=== PATIENT | female | born 1960 | race Caucasian/White ===

== ENCOUNTER → 2016-07-20 | Outpatient (CLI) | payer OTHER ==
[~2016-07-20] MED LIST: ACET-1311 PO; ASPI81TA28 PO; ATOR-24 PO; CARV12.52 PO; CLTP PO; CRG625 PO; CTP/1 PO; EFFSR150 PO; IMDSR/30 PO; LISI-461 PO; MECL1TAB42 PO; METF500T5 PO; MULT-506 PO; PANT40TA PO
[2016-07-20 17:57] LABS: ALB/GLOB RATIO 1.1 (0.9-2); ALKALINE PHOSPHATASE 86 U/L (45-117); ALT/SGPT 36 U/L (12-78); AST/SGOT 15 U/L (15-37); BLOOD UREA NITROGEN 13 mg/dl (7-18); BUN/CREATININE RATIO 15.4 (10-20); CARBON DIOXIDE 29 mmol/L (21-32); CHLORIDE 103 mmol/L (98-107); CHOLESTEROL 129 mg/dl (0-200); CHOLESTEROL/HDL RATIO 2.2; CREATININE 0.86 mg/dl (0.60-1.20); GLUCOSE 131 mg/dl (70-99); HDL CHOLESTEROL 58 mg/dl; LDL CHOLESTEROL CALCULATED 33 mg/dl; POTASSIUM 4.6 mmol/L (3.5-5.1); SODIUM 140 mmol/L (136-145); TRIGLYCERIDES 192 mg/dl (0-150); VERY LOW DENSITY LIPOPROT CALC 38 mg/dl
[2016-07-21 07:09] LABS: ESTIMATED AVERAGE GLUCOSE 148 mg/dl; HA1C FLAG Normal (Normal)
== END | disposition home or self-care (01) ==
LOC: C.LABBFT 12:13
PROVIDERS: ATTEND Nurse Practitioner
DX: E11.9 Type 2 diabetes mellitus without complications (principal)

== ENCOUNTER → 2016-07-27 | Outpatient (CLI) | payer OTHER | END | disposition home or self-care (01) | LOC: C.PAPS 08:21 | PROVIDERS: ATTEND Nurse Practitioner | DX: Z12.4 Encounter for screening for malignant neoplasm of cervix (principal) ==

== ENCOUNTER 2016-08-31 17:17 | Emergency (ER) | payer OTHER ==
[~2016-08-31] VITALS: Ht 160 cm; Wt 105.2 kg
[2016-08-31 17:21] VITALS: BP 132/78; PULSE 77; TEMP 36.8; O2SAT 99; Ht 160 cm; Wt 105.2 kg
== END 2016-08-31 18:35 | disposition left against medical advice (07) ==
LOC: C.EDB 17:18
DX: R39.9 Unspecified symptoms and signs involving the genitourinary system (principal)

== ENCOUNTER → 2016-09-14 | Outpatient (CLI) | payer OTHER ==
--- NOTE | 2016-09-14 16:24 | MAMMOGRAPHY REPORT ---
BILATERAL DIGITAL SCREENING MAMMOGRAM TOMOSYNTHESIS WITH CAD: 09/14/2016 CLINICAL HISTORY: Routine screening. Patient has no complaints. TECHNIQUE: Breast tomosynthesis in addition to standard 2D mammography was performed. Current study was also evaluated with a Computer Aided Detection (CAD) system. COMPARISON: Comparison is made to exams dated: 09/09/2015 mammogram, 09/03/2014 mammogram, 08/28/2013 m ammogram, 08/24/2012 mammogram, 08/19/2011 mammogram, and 08/07/2010 mammogram - [facility]. BREAST COMPOSITION: The tissue of both breasts is heterogeneously dense, which may obscure small ma sses. FINDINGS: There is asymmetry of the size of the breasts, right greater than left, unchanged on all a vailable prior mammograms dating back to at least 2007, most likely normal anatomic variation. Ther e are scattered benign-appearing microcalcifications bilaterally. No new suspicious mass, it architecture analyst ural distortion or cluster of microcalcifications is seen. IMPRESSION: ACR BI-RADS CATEGORY 1: NEGATIVE There is no mammographic evidence of malignancy. A 1 year screening mammogram is recommended. The p atient will receive written notification of the results. Approximately 10% of breast cancers are not detected with mammography. A negative mammographic repor t should not delay biopsy if a clinically suggestive mass is present. Nikky Guadarrama M.D. ay/:09/14/2016 16:03:38 Computer Operations Manager: Chelsea DAVIS(Chris)([place]), [facility] letter sent: Normal 1/2 BI-RADS Code: ACR BI-RADS Category 1: Negative
== END | disposition home or self-care (01) ==
LOC: C.MAMM 10:58
PROVIDERS: ATTEND Nurse Practitioner
DX: Z12.31 Encounter for screening mammogram for malignant neoplasm of breast (principal)

== ENCOUNTER → 2017-02-15 | Outpatient (CLI) | payer OTHER ==
[2017-02-15 16:52] LABS: BLOOD UREA NITROGEN 11 mg/dl (7-18); BUN/CREATININE RATIO 15.9 (10-20); CALCIUM 9.6 mg/dl (8.5-10.1); CARBON DIOXIDE 28 mmol/L (21-32); CHLORIDE 106 mmol/L (98-107); CREATININE 0.71 mg/dl (0.60-1.20); GLUCOSE 97 mg/dl (70-99); MAGNESIUM 1.9 mg/dl (1.8-2.4); POTASSIUM 4.8 mmol/L (3.5-5.1); SODIUM 139 mmol/L (136-145)
[2017-02-15 17:00] LABS: ALKALINE PHOSPHATASE 86 U/L (45-117); ALT/SGPT 44 U/L (12-78); AST/SGOT 26 U/L (15-37); CHOLESTEROL 123 mg/dl (0-200); CHOLESTEROL/HDL RATIO 2.3; HDL CHOLESTEROL 54 mg/dl; LDL CHOLESTEROL CALCULATED 28 mg/dl; TRIGLYCERIDES 206 mg/dl (0-150); VERY LOW DENSITY LIPOPROT CALC 41 mg/dl
[2017-02-16 05:58] LABS: ESTIMATED AVERAGE GLUCOSE 140 mg/dl; HA1C FLAG Normal (Normal)
== END | disposition home or self-care (01) ==
LOC: C.LABBFT 11:30
PROVIDERS: ATTEND Nurse Practitioner
DX: E11.9 Type 2 diabetes mellitus without complications (principal); E83.42 Hypomagnesemia